=== PATIENT | male | born 1980 | race Asian ===

== ENCOUNTER 2016-11-17 16:13 | Emergency (ER) | payer MEDICAID ==
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
--- NOTE | 2016-11-17 16:31 | CPEKG ---
Heart Rate: 128 RR Interval: 469 P-R Interval: 132 QRSD Interval: 92 QT Interval: 308 QTC Interval: 450 P Thomas: 66 QRS Thomas: 78 T Wave Thomas: 14 EKG Severity - BORDERLINE ECG - EKG Impression: SINUS TACHYCARDIA EKG Impression: PROBABLE LEFT ATRIAL ABNORMALITY Electronically Signed By: Johnathon Sam 17-Nov-2016 19:31:44
[2016-11-17] MEDS ORDERED: OLANZapine 10 MG/2 ML VIAL IM ONE ×2 (16:40→16:47)
[2016-11-17 16:41] LABS: % IMMATURE GRANULYOCYTES 1.1 % (0.0-1.1); ABSOLUTE IMMATURE GRANULOCYTES 0.16 10^3/uL (0.00-0.10); ADD DIFF? NO; ADD MORPH? NO; ADD SCAN? NO; ATYPICAL LYMPHOCYTE FLAG 10 (0-99); FRAGMENT RBC FLAG 0 (0-99); HEMATOCRIT 47.6 % (40.0-51.0); HEMOGLOBIN 15.6 g/dL (13.7-17.5); LEFT SHIFT FLG 10 (0-99); LIPEMIA HEMOLYSIS FLAG 80 (0-99); MEAN CELL HEMOGLOBIN 28.1 pg (27.9-34.1); MEAN CELL HEMOGLOBIN CONCENTR. 32.8 g/dL (32.4-36.7); MEAN CELL VOLUME 85.8 fL (81.5-99.8); PLATELET CLUMPS FLAG 30 (0-99); PLATELET COUNT 419 10^3/uL (150-400); RED BLOOD CELL COUNT 5.55 10^6/uL (4.40-6.38); RED CELL DISTRIBUTION WIDTH 12.9 % (11.5-15.2)
[2016-11-17 16:55] LABS: ANION GAP 26 mEq/L (8-16); CALCIUM 9.6 mg/dL (8.5-10.4); CARBON DIOXIDE 15 mEq/l (22-31); CHLORIDE 97 mEq/L (97-110); CREATININE 1.3 mg/dL (0.7-1.3); ETHANOL SERUM < 10 mg/dL (0-10); GLOMERULAR FILTRATION RATE > 60; GLUCOSE 169 mg/dL (70-100); LITHIUM 0.6 mEq/L (0.6-1.2); POTASSIUM 4.6 mEq/L (3.5-5.2); SALICYLATE < 1.0 mg/dL (2.0-20.0); SODIUM 138 mEq/L (134-144)
[2016-11-17] MEDS ORDERED: IBUPROFEN 600 MG TAB PO ONE (19:25)
[2016-11-17] MEDS ORDERED: lamoTRIgine 100 MG TAB PO ONE (21:27)
[2016-11-17] MEDS ORDERED: DIVALPROEX ER 500 MG TAB PO SCH (21:30)
[2016-11-17] MEDS: LITHIUM CARBONATE ER 450 MG TAB PO SCH ×2 (21:40→21:50)
[2016-11-17 22:38] VITALS: RESP 16
[2016-11-18] MEDS ORDERED: IBUPROFEN 200 MG TAB PO ONE ×2 (06:07→06:19)
[2016-11-18] MEDS ORDERED: IBUPROFEN 600 MG TAB PO ONE (06:07)
[2016-11-18 07:08] VITALS: BP 136/91; PULSE 82; TEMP 97.3; O2SAT 98
[2016-11-18] MEDS ORDERED: LEVOTHYROXINE 50 MCG TAB PO SCH (09:00)
[2016-11-18] MEDS ORDERED: DIVALPROEX ER 500 MG TAB PO SCH (09:00)
[2016-11-18] MEDS ORDERED: LITHIUM CARBONATE ER 450 MG TAB PO SCH (09:00)
== END 2016-11-18 07:10 ==
LOC: EDUNIT#
DX: S20.319A Abrasion of unspecified front wall of thorax, initial encounter (principal); F31.9 Bipolar disorder, unspecified; W22.8XXA Striking against or struck by other objects, initial encounter; Y93.89 Activity, other specified
CPT/HCPCS: G0477; G0480

== ENCOUNTER 2019-03-10 15:59 | Inpatient (IN) | payer MEDICAID, OTHER ==
[2019-03-10] MEDS ORDERED: LORazepam 0.5 MG TAB PO PRN (21:39)
[2019-03-10] MEDS ORDERED: ACETAMINOPHEN 325 MG TAB PO PRN (21:39)
[2019-03-10] MEDS ORDERED: MAG HYDROX/AL HYDROX/SIMETH 30 ML UDCUP PO PRN (21:40)
[2019-03-10] MEDS ORDERED: LORazepam 0.5 MG TAB PO SCH (21:45)
[2019-03-10] MEDS ORDERED: ZOLPIDEM TARTRATE 5 MG TAB PO SCH (21:45)
[2019-03-10] MEDS: CETIRIZINE 10 MG TAB PO SCH (21:59)
[2019-03-10] MEDS: NICOTINE POLACRILEX 2 MG GUM B PRN (22:34)
[2019-03-11] MEDS: NICOTINE POLACRILEX 2 MG GUM B PRN ×4 (07:48→17:37)
[2019-03-11] MEDS: OMEGA-3 FATTY ACIDS 1,000 MG CAP PO SCH (08:18)
[2019-03-11] MEDS: lamoTRIgine 100 MG TAB PO SCH (08:18)
[2019-03-11] MEDS ORDERED: LORazepam 0.5 MG TAB PO SCH (09:00)
[2019-03-11] MEDS: LEVOTHYROXINE 25 MCG TAB PO SCH (10:39)
[2019-03-11] MEDS: ARIPiprazole 2 MG TAB PO SCH (12:30)
[2019-03-11] MEDS: PSYLLIUM METAMUCIL 1 PKT PO SCH (12:30)
[2019-03-11] MEDS: CETIRIZINE 10 MG TAB PO SCH (19:21)
[2019-03-11] MEDS: ZOLPIDEM TARTRATE 5 MG TAB PO SCH ×2 (19:42→23:04)
[2019-03-11] MEDS: MAGNESIUM HYDROXIDE 30 ML UDCUP PO PRN (21:22)
[2019-03-11] MEDS: LORazepam 0.5 MG TAB PO PRN (21:23)
[2019-03-11] MEDS: MELATONIN 3 MG TAB PO PRN (21:23)
[2019-03-12] MEDS: LEVOTHYROXINE 25 MCG TAB PO SCH (08:27)
[2019-03-12] MEDS: lamoTRIgine 100 MG TAB PO SCH (08:27)
[2019-03-12] MEDS: OMEGA-3 FATTY ACIDS 1,000 MG CAP PO SCH (08:27)
[2019-03-12] MEDS: ARIPiprazole 2 MG TAB PO SCH (08:27)
[2019-03-12] MEDS: PSYLLIUM METAMUCIL 1 PKT PO SCH (08:27)
[2019-03-12] MEDS: NICOTINE POLACRILEX 2 MG GUM B PRN ×3 (08:46→17:43)
[2019-03-12] MEDS: BREXPIPRAZOLE 1 MG TAB PO SCH (14:55)
[2019-03-12] MEDS: CETIRIZINE 10 MG TAB PO SCH (21:49)
[2019-03-12] MEDS: MAGNESIUM HYDROXIDE 30 ML UDCUP PO PRN (21:49)
[2019-03-12] MEDS: LORazepam 0.5 MG TAB PO PRN (21:49)
[2019-03-12] MEDS: ZOLPIDEM TARTRATE 5 MG TAB PO SCH (21:50)
[2019-03-12] MEDS: MELATONIN 3 MG TAB PO PRN (21:52)
[2019-03-13] MEDS: BREXPIPRAZOLE 1 MG TAB PO SCH (08:10)
[2019-03-13] MEDS: OMEGA-3 FATTY ACIDS 1,000 MG CAP PO SCH (08:10)
[2019-03-13] MEDS: LEVOTHYROXINE 25 MCG TAB PO SCH (08:10)
[2019-03-13] MEDS: lamoTRIgine 100 MG TAB PO SCH (08:10)
[2019-03-13] MEDS: PSYLLIUM METAMUCIL 1 PKT PO SCH (08:11)
[2019-03-13] MEDS: NICOTINE POLACRILEX 2 MG GUM B PRN ×3 (08:46→17:44)
[2019-03-13] MEDS: LORazepam 0.5 MG TAB PO PRN (21:07)
[2019-03-13] MEDS: ZOLPIDEM TARTRATE 5 MG TAB PO SCH (21:07)
[2019-03-13] MEDS: CETIRIZINE 10 MG TAB PO SCH (21:08)
[2019-03-13] MEDS: MAGNESIUM HYDROXIDE 30 ML UDCUP PO PRN (21:08)
[2019-03-13] MEDS: MELATONIN 3 MG TAB PO PRN (21:09)
[2019-03-14] MEDS: LORazepam 0.5 MG TAB PO PRN ×2 (01:24→21:15)
[2019-03-14] MEDS: lamoTRIgine 100 MG TAB PO SCH (08:23)
[2019-03-14] MEDS: BREXPIPRAZOLE 1 MG TAB PO SCH (08:23)
[2019-03-14] MEDS: OMEGA-3 FATTY ACIDS 1,000 MG CAP PO SCH (08:23)
[2019-03-14] MEDS: PSYLLIUM METAMUCIL 1 PKT PO SCH (08:23)
[2019-03-14] MEDS: NICOTINE POLACRILEX 2 MG GUM B PRN ×2 (08:32→13:35)
[2019-03-14] MEDS: LEVOTHYROXINE 25 MCG TAB PO SCH (10:01)
[2019-03-14] MEDS: CETIRIZINE 10 MG TAB PO SCH (21:15)
[2019-03-14] MEDS: ZOLPIDEM TARTRATE 5 MG TAB PO SCH (21:15)
[2019-03-14] MEDS: MELATONIN 3 MG TAB PO PRN (21:15)
[2019-03-15] MEDS: LEVOTHYROXINE 25 MCG TAB PO SCH (07:48)
[2019-03-15] MEDS: PSYLLIUM METAMUCIL 1 PKT PO SCH (08:21)
[2019-03-15] MEDS: OMEGA-3 FATTY ACIDS 1,000 MG CAP PO SCH (08:21)
[2019-03-15] MEDS: BREXPIPRAZOLE 1 MG TAB PO SCH (08:21)
[2019-03-15] MEDS: lamoTRIgine 100 MG TAB PO SCH (08:21)
[2019-03-15] MEDS: NICOTINE POLACRILEX 2 MG GUM B PRN ×3 (08:27→16:57)
[2019-03-15] MEDS ORDERED: BREXPIPRAZOLE 1 MG TAB PO SCH (21:00)
[2019-03-15] MEDS: LORazepam 0.5 MG TAB PO PRN (21:51)
[2019-03-15] MEDS: MELATONIN 3 MG TAB PO PRN (21:51)
[2019-03-15] MEDS: CETIRIZINE 10 MG TAB PO SCH (21:51)
[2019-03-15] MEDS: ZOLPIDEM TARTRATE 5 MG TAB PO SCH (21:52)
[2019-03-16] MEDS: BREXPIPRAZOLE 1 MG TAB PO SCH (08:34)
[2019-03-16] MEDS: LEVOTHYROXINE 25 MCG TAB PO SCH (08:34)
[2019-03-16] MEDS: lamoTRIgine 100 MG TAB PO SCH (08:35)
[2019-03-16] MEDS: OMEGA-3 FATTY ACIDS 1,000 MG CAP PO SCH (08:36)
[2019-03-16] MEDS: NICOTINE 7 MG/24 HR PATCH TD SCH (11:13)
[2019-03-16] MEDS: PSYLLIUM METAMUCIL 1 PKT PO SCH (11:48)
[2019-03-16] MEDS: LORazepam 0.5 MG TAB PO PRN (21:05)
[2019-03-16] MEDS: MELATONIN 3 MG TAB PO PRN (21:05)
[2019-03-16] MEDS: ZOLPIDEM TARTRATE 5 MG TAB PO SCH (21:05)
[2019-03-16] MEDS: CETIRIZINE 10 MG TAB PO SCH (21:06)
[2019-03-17] MEDS: PSYLLIUM METAMUCIL 1 PKT PO SCH (09:44)
[2019-03-17] MEDS: LEVOTHYROXINE 25 MCG TAB PO SCH (09:44)
[2019-03-17] MEDS: NICOTINE 7 MG/24 HR PATCH TD SCH (09:44)
[2019-03-17] MEDS: lamoTRIgine 100 MG TAB PO SCH (09:44)
[2019-03-17] MEDS: OMEGA-3 FATTY ACIDS 1,000 MG CAP PO SCH (09:44)
[2019-03-17] MEDS: BREXPIPRAZOLE 1 MG TAB PO SCH (10:29)
[2019-03-17] MEDS: LORazepam 0.5 MG TAB PO PRN (21:23)
[2019-03-17] MEDS: MELATONIN 3 MG TAB PO PRN (21:24)
[2019-03-17] MEDS: CETIRIZINE 10 MG TAB PO SCH (21:24)
[2019-03-17] MEDS: ZOLPIDEM TARTRATE 5 MG TAB PO SCH (21:24)
[2019-03-18] MEDS: lamoTRIgine 100 MG TAB PO SCH (08:10)
[2019-03-18] MEDS: BREXPIPRAZOLE 1 MG TAB PO SCH (08:10)
[2019-03-18] MEDS: LEVOTHYROXINE 25 MCG TAB PO SCH (08:11)
[2019-03-18] MEDS: OMEGA-3 FATTY ACIDS 1,000 MG CAP PO SCH (08:11)
[2019-03-18] MEDS: PSYLLIUM METAMUCIL 1 PKT PO SCH (08:11)
[2019-03-18] MEDS: NICOTINE 7 MG/24 HR PATCH TD SCH (08:11)
== END 2019-03-18 13:45 | disposition home or self-care (01) | DRG 885 ==
DX: F31.4 Bipolar disorder, current episode depressed, severe, without psychotic features (principal); Z72.0 Tobacco use; E03.9 Hypothyroidism, unspecified; G47.00 Insomnia, unspecified